=== PATIENT | male | born 1935 | race Caucasian/White ===

== ENCOUNTER → 2016-10-12 | Outpatient (CLI) | payer MEDICARE ==
[~2016-10-12] MED LIST: ASPI-658 PO; BUDE10.2 INH; CALC500T26 PO; CEFD300C2 PO; CHOL100011 PO; DOXY100T PO; EZET10TA3 PO; EZET1TAB4 PO; FLUO40CA9 PO; FURO-93 PO; INSU100C5; INSU100I28 SQ-INSULIN; INSU100V8 SQ; IPRA3AMP NPPB; LEVO500T33 PO; LEVO75TA PO; LORA0.5T PO; METF-366 PO; METO25TA35 PO; OMEG-120 PO; PRED10TA14 PO; PRED5TAB PO; SIMV20TA3 PO; TIOT18CA INH
[2016-10-12 13:34] LABS: BLOOD UREA NITROGEN 11 mg/dL (7-18)
[2016-10-12 13:42] LABS: ASPARTATE AMINO TRANSFERASE 22 U/L (15-37)
== END | disposition home or self-care (01) ==
LOC: CFH 08:04
PROVIDERS: ATTEND Nurse Practitioner Primary Care
DX: I10 Essential (primary) hypertension (principal); J98.4 Other disorders of lung; E11.65 Type 2 diabetes mellitus with hyperglycemia; J44.9 Chronic obstructive pulmonary disease, unspecified; J18.9 Pneumonia, unspecified organism; E55.9 Vitamin D deficiency, unspecified; A04.7 Enterocolitis due to Clostridium difficile; R10.817 Generalized abdominal tenderness; E03.9 Hypothyroidism, unspecified; E78.2 Mixed hyperlipidemia; R53.83 Other fatigue; F06.4 Anxiety disorder due to known physiological condition; Z72.0 Tobacco use
CPT/HCPCS: 36415; 80053; 83880; 85025

== ENCOUNTER → 2017-01-17 | Outpatient (CLI) | payer MEDICARE ==
[~2017-01-17] MED LIST changes: -CEFD300C2 PO; +CEFD300C37 PO
[2017-01-17 12:26] LABS: BLOOD UREA NITROGEN 12 mg/dL (7-18)
[2017-01-17 12:39] LABS: ASPARTATE AMINO TRANSFERASE 19 U/L (15-37)
== END | disposition home or self-care (01) ==
LOC: CFH 09:07
PROVIDERS: ATTEND Nurse Practitioner Primary Care
DX: E03.9 Hypothyroidism, unspecified (principal); E55.9 Vitamin D deficiency, unspecified; E11.65 Type 2 diabetes mellitus with hyperglycemia; E78.2 Mixed hyperlipidemia; A04.7 Enterocolitis due to Clostridium difficile; R53.83 Other fatigue; J44.9 Chronic obstructive pulmonary disease, unspecified; I10 Essential (primary) hypertension; F06.4 Anxiety disorder due to known physiological condition; R10.817 Generalized abdominal tenderness; J18.9 Pneumonia, unspecified organism; Z72.0 Tobacco use
CPT/HCPCS: 36415; 80053; 80061; 81003; 82043; 82306; 83880; 84443; 85025